=== PATIENT | male | born 1995 | race Caucasian/White ===

== ENCOUNTER → 2022-05-08 14:35 | Outpatient (CLI) | payer BC, SELFPAY ==
--- NOTE | 2022-05-08 14:40 | CA_ITS ---
APPROVED REPORT EXAM: Comprehensive 2D, Doppler, and color-flow Echocardiogram Signal Wirer: Brandy Coronel RVT Ht: 6 ft 0 in Wt: 219lbs BSA: 2.21 BP: 133/84 mmHg Indications: CP,EID 2D Dimensions LVOT 2.01 cm (M/F) 1.5-2.5 LA Volume 17.40 mL LA Volume Index 7.87 mL/m2 (M/F) 16-34 M-Mode Dimensions RVDd 2.29 cm (0.9-2.6) LA Diam 3.53 cm (1.9-4.0) LVDd 4.25 cm (3.5-5.7) Ao Diam 2.80 cm (2.0-3.7) LVDs 2.50 cm (3.5-5.7) IVSd 1.00 cm (0.6-1.1) PWd 1.14 cm (0.6-1.1) EF (Teich) 72.40% FS 41.20% EDV (Teich) 80.80 mL TAPSE 2.50 (<1.7) ESV (Teich) 22.30 mL LV Diastology E Decel Time 150.00 (160-240 msec) E/A Ratio 1.3 MED E' 10.60 (< 7 cm/sec) E'/MED E' Ratio 8.94 (>14) LAT E' 10.10 (<10 cm/sec) E/LAT E' Ratio 9.39 (>14) Aortic Valve AO Peak GR. 6.40 mmHg Mitral Valve MV E Max Gerson. 95.00 (40-130 cm/s) MV A Velocity 76.00 (40-130 cm/s) E/A Ratio 1.24 MV Decel. Time 150.00 (160-240 ms) MV PHT 44.00 ms Pulmonary Valve PV Peak Velocity 92.00 (50-150 cm/s) Tricuspid Valve TR P. Velocity 205.00 cm/s RAP Estimate 10.00 mmHg RVSP 26.80 mmHg Left Ventricle Left atrium is normal size, left ventricle is normal size, there is no concentric left ventricular hypertrophy, estimated ejection fraction 55% with no regional wall motion abnormality, diastolic parameters are within normal range. Right Ventricle Right atrium and right ventricle are normal size and contractility. Aortic Valve Aortic valve is grossly normal there is no aortic stenosis or aortic insufficiency. Mitral Valve Mitral valve grossly normal, there is no significant mitral regurgitation. Tricuspid Valve Tricuspid valve grossly normal, there is no significant tricuspid regurgitation. Pulmonic Valve Pulmonic valve is poorly visualized. Great Vessels Aortic root is normal size. Inferior vena cava is normal size with normal inspiratory collapse. Pericardium No significant pericardial effusion noted. Conclusion 1. Normal left ventricular size preserved left ventricular systolic function, estimated ejection fraction 55% with no regional wall motion abnormality. 2. No significant pericardial effusion noted. 3. Inferior vena cava is normal size with normal inspiratory collapse. Electronically signed by : Kyrie Nava MD 05/09/2022 06:23:04
--- NOTE | 2022-05-08 14:43 | XR_ITS ---
FINAL REPORT CLINICAL HISTORY: dyspnea FINDINGS: TWO-VIEW CHEST Two views of the chest were obtained. The heart size and pulmonary vascularity are within normal limits. The mediastinum is normal. No acute pulmonary abnormality is identified. There is no pneumothorax. The bony thorax is intact. IMPRESSION: No active cardiopulmonary disease. Reviewed, Interpreted and Dictated by Joe Cobian MD Transcribed by Valery Neil Authenticated and . [facility]
== END ==
PROVIDERS: Visit Provider Nurse Practitioner
DX: R06.09 Other forms of dyspnea (principal); R07.89 Other chest pain
CPT/HCPCS: 71046; 93306